=== PATIENT | male | born 1955 | race Caucasian/White ===

== ENCOUNTER 2023-08-20 16:50 | Observation (INO) ==
[~2023-08-20 16:50] MED LIST: Iodixanol 320 (CONTRAST) 100 ML SDV IV ONE
[2023-08-20 17:21] LABS: ABS Lymphocytes 0.6 10^3/uL (1.0-4.8); ABS Monocytes 0.2 10^3/uL (0.0-1.1); ABS Neutrophils 5.8 10^3/uL (1.5-7.6); Hematocrit 33.7 % (38-53); Hemoglobin 11.1 g/dL (13.2-16.3); Lymphocyte % 9.1 %; Mean Corpuscular Hemoglobin 26.9 pg (27-33); Mean Corpuscular Hgb Conc 32.9 g/dL (31-36); Mean Corpuscular Volume 81.8 fL (80-97); Mean Platelet Volume 7.2 fL (7.5-11.2); Nucleated Red Blood Cells % 0.1 %/100WBC (0.0-0.8); Platelet Count 444 10^3/uL (150-450); Red Blood Count 4.11 10^6/uL (4.06-5.63); Red Cell Distribution Width 15.5 % (12-17); White Blood Count 6.6 10^3/uL (3.6-10.2)
[2023-08-20 17:38] LABS: Albumin 4.7 g/dL (3.2-5.2); Albumin/Globulin Ratio 1.6 (1-3); Calcium 9.6 mg/dL (8.6-10.3); Creatinine, Serum 1.18 mg/dL (0.67-1.17); Direct Bilirubin 0.1 mg/dL (0.03-0.18); HDL Cholesterol 67.8 mg/dL; Indirect Bilirubin 0.4 mg/dL (0.3-1.0); Potassium 4.7 mmol/L (3.5-5.0); Total Bilirubin 0.5 mg/dL (0.2-1.0); Total Protein 7.7 g/dL (6.4-8.9); eGFR CKD-EPI 66.4 (>60)
[2023-08-20 17:45] LABS: Activated Partial Thrombo Time 32.7 seconds (26.0-38.0); INR 1.12 (0.83-1.13)
[2023-08-20 20:38] LABS: Urine Appearance Clear; Urine Bilirubin Negative (Negative); Urine Blood Negative (Negative); Urine Color Yellow; Urine Glucose Negative (Negative); Urine Ketones Negative (Negative); Urine Nitrite Negative (Negative); Urine Protein Negative (Negative); Urine Specific Gravity 1.021 (1.002-1.030); Urine Urobilinogen Negative (Negative)
[2023-08-20] MEDS ORDERED: Lactated Ringers 1000 ml BAG 1,000 ML IV SCH (23:00)
[2023-08-21 06:23] LABS: HDL Cholesterol 51.4 mg/dL
[2023-08-21] MEDS ORDERED: Lactated Ringers 1000 ml BAG 1,000 ML IV SCH (18:00)
[2023-08-21 18:45] LABS: Magnesium 2.1 mg/dL (1.9-2.7)
[2023-08-22 07:08] LABS: ABS Basophils 0.1 10^3/uL (0.0-0.1); ABS Eosinophils 0.1 10^3/uL (0.0-0.5); ABS Monocytes 0.8 10^3/uL (0.0-1.1); ABS Neutrophils 4.5 10^3/uL (1.5-7.6); Eosinophil % 1.3 %; Hemoglobin 9.7 g/dL (13.2-16.3); Lymphocyte % 26.9 %; Mean Corpuscular Hemoglobin 27.1 pg (27-33); Mean Corpuscular Hgb Conc 33.3 g/dL (31-36); Mean Corpuscular Volume 81.4 fL (80-97); Mean Platelet Volume 7.2 fL (7.5-11.2); Platelet Count 357 10^3/uL (150-450); Red Blood Count 3.56 10^6/uL (4.06-5.63); Red Cell Distribution Width 15.1 % (12-17); White Blood Count 7.6 10^3/uL (3.6-10.2)
[2023-08-22 07:24] LABS: Calcium 8.2 mg/dL (8.6-10.3); Creatinine, Serum 0.98 mg/dL (0.67-1.17); Potassium 4.1 mmol/L (3.5-5.0)
[2023-08-22 13:17] VITALS: BP 120/73
== END 2023-08-22 12:55 | disposition home or self-care (01) ==
LOC: EDHOLD 16:50 → ED 16:50 → SUATTDRO 20:13 → MEDTELE 08-21 17:56
PROVIDERS: ADMIT Internal Medicine; ATTEND Internal Medicine